=== PATIENT | female | born 1960 | race Caucasian/White ===

== ENCOUNTER → 2019-05-23 | Outpatient (CLI) | payer OTHER ==
[~2019-05-23] MED LIST: 0.9 % SODIUM CHLORIDE 10 ML DISP.SYRIN. ID ONE; GADOTERATE 5 MMOL/10ML VIAL. INT ART ONE; IOHEXOL 300 MG/ML 50 ML VIAL. INT ART ONE; LIDOCAINE 1% Multi-Dose 20 ML VIAL. ID ONE; LISI10TA2 PO
--- NOTE | 2019-05-23 16:29 | KCIC ---
Examination: Right shoulder Arthrogram: Indications: Pain. Procedure: Risks, benefits and complications including bleeding, infection, blood vessel damage or joint infection were discussed with the patient. Questions were answered and consent form signed. The patient was placed supine on the fluoroscopy table with the shoulder slightly externally rotated. Bony landmarks were used to plan for fluoroscopic injection. The patient was carefully prepped and draped in a sterile fashion. Using fluoroscopic guidance, local anesthetic and a 22 gauge needle the joint space was entered. A 13 cc mixture of 5 cc Omni 300, 5 cc lidocaine, 10 cc saline and 0.1 cc of Dotarem .The procedure was well tolerated and the patient was sent to MRI. Fluoroscopic time 40 seconds. Total fluoroscopic images 1. Impression: Status post fluoroscopic guided arthrogram in preparation for MRI with contrast. Electronically signed by: Lawrence Smith MD (05/23/2019 4:26 PM) [id number]
--- NOTE | 2019-05-23 16:31 | KCIC ---
Examination: MRI right shoulder arthrogram HISTORY: History of right shoulder pain COMPARISON: None available TECHNIQUE: Multiplanar, multisequence MR imaging of the right shoulder performed after arthrogram injection. FINDINGS: The long head of the biceps tendon within the bicipital groove. The attachment of the long head the biceps tendon to the superior labral anchor grossly appears intact. The attachment of the subscapularis tendon grossly appears intact. Small 9 mm hypointense signal identified in the distal supraspinatus tendon likely calcific tendinitis. There is extension of contrast into the anterior aspect of the subdeltoid bursa with mild undulation of the anteriormost fibers of the supraspinatus tendon, best visualized on series 6 image #10 The attachment of the infraspinatus tendon, teres minor tendon grossly appears intact. The visualized labrum grossly appears intact The muscle bulk grossly appears unremarkable The acromion is type II. IMPRESSION: 1. Calcific tendinitis supraspinatus tendon. 2. Contrast in the subacromial bursa and irregular tissue at the rotator interval which is concerning for a tear at the far leading edge of the supraspinatus and extending to involve the interval though it is difficult to exclude a split injection to account for the appearance. Electronically signed by: Lawrence Smith MD (05/23/2019 4:28 PM) [id number]
== END | disposition home or self-care (01) ==
LOC: KCIC 12:37
PROVIDERS: ATTEND Orthopaedic Surgery
DX: M75.31 Calcific tendinitis of right shoulder (principal); I10 Essential (primary) hypertension; Z88.0 Allergy status to penicillin
CPT/HCPCS: 73040; 73222; A9575; Q9967

== ENCOUNTER → 2019-07-11 | Outpatient (CLI) | payer BC, OTHER ==
[~2019-07-11] MED LIST changes: -0.9 % SODIUM CHLORIDE 10 ML DISP.SYRIN. ID ONE; -GADOTERATE 5 MMOL/10ML VIAL. INT ART ONE; -IOHEXOL 300 MG/ML 50 ML VIAL. INT ART ONE; -LIDOCAINE 1% Multi-Dose 20 ML VIAL. ID ONE
--- NOTE | 2019-07-11 09:25 | KCIC ---
MRI Cervical Spine Without Contrast History: Cervical radiculopathy, new shooting pain in the right arm, neck pain for one month Technique: Multiplanar, multi sequential noncontrast MR imaging was performed of the cervical spine. Comparison: None Findings: There is some motion. Cervical cord caliber is within normal limits without defined or expansile signal abnormality. Cervical vertebral body stature is maintained. There is very minimal posterior subluxation C4 relative to C5. There is straightening of the cervical spine. There is moderate degenerative disc disease greater posteriorly at C4-C5, also [id number] degenerative disc disease at C5-6 and minimally at C6-7 and C3-C4. There is no significant focal marrow edema. C2-C3: Neural foramina and spinal canal are adequate. C3-C4: There is a posterior right paracentral protrusion/mostly contained extrusion about 3 to 4 mm indenting the ventral thecal sac and partially effacing ventral subarachnoid space with contact of the ventral surface of cord. There is extent very slightly above and below the intervertebral disc space. Central canal is narrowed to about 8 mm. Neural foramina are adequate. C4-C5: There is minimal disc osteophyte complex and bulge. Central canal is borderline about 10 mm. There is bilateral uncovertebral degenerative change. Somewhat poorly characterized due to motion, there is likely at least [id number] narrowing of the right neural foramen and at least mild narrowing on the left. C5-C6: There is minimal disc osteophyte complex slightly indenting the ventral thecal sac, somewhat greater in the far left lateral recess. Central canal is narrowed to about 9 mm also with mild narrowing of the far left lateral recess. There is uncovertebral degenerative change greater on the left. Right neural foramen is adequate, minimal narrowing of the left neural foramen anteriorly. C6-C7: There is minimal bulge. Central canal is adequate about 12 mm. There is facet degenerative change bilaterally. There is minimal narrowing of the left neural foramen, right neural foramen adequate. C7-T1: Spinal canal and the neural foramina are adequate. Impression: 1. There is mild spinal stenosis at C3-4 and to lesser degree at C5-C6 as described. There is very mild posterior subluxation C4 relative to C5. There is moderate degenerative disc disease at C4-5 and to a somewhat lesser degree at C5-6, minimally at C3-4 and C6-7. There is spondylosis greatest at C4-5 and C5-6. There is suspected [id number] neural foramina compromise greater on the right at C4-5 in part from uncovertebral degenerative change. Electronically signed by: Main Watt MD (07/11/2019 9:22 AM) [id number]
== END | disposition home or self-care (01) ==
LOC: KCIC MRI 08:15
PROVIDERS: ATTEND Orthopaedic Surgery
DX: M50.121 Cervical disc disorder at C4-C5 level with radiculopathy (principal); M47.22 Other spondylosis with radiculopathy, cervical region; M48.02 Spinal stenosis, cervical region; M25.78 Osteophyte, vertebrae
CPT/HCPCS: 72141

== ENCOUNTER → 2020-12-17 | Day surgery (SDC) | payer OTHER ==
[~2020-12-17] VITALS: Ht 165.1 cm; Wt 68.0 kg
[~2020-12-17] MED LIST changes: +IV RINGERS,LACTATED 1000ML 1,000 ML IV SCH; +LIDOCAINE 2% PF 5 ML VIAL. ONE; +LISI10TA16 PO; -LISI10TA2 PO; +PREG-9 PO; +PROPOFOL 10 MG/ML (20ML) VIAL. IV ONE; +TRIA1CAP3 PO
[2020-12-17 09:15] VITALS: BP 183/77
[2020-12-17 10:18] VITALS: BP 109/59
== END | disposition home or self-care (01) ==
LOC: SURG 08:08
PROVIDERS: ATTEND Internal Medicine Gastroenterology
DX: Z12.11 Encounter for screening for malignant neoplasm of colon (principal); K64.0 First degree hemorrhoids; K63.89 Other specified diseases of intestine; I10 Essential (primary) hypertension; Z85.828 Personal history of other malignant neoplasm of skin; Z79.899 Other long term (current) drug therapy; Z98.890 Other specified postprocedural states; Z88.0 Allergy status to penicillin
CPT/HCPCS: 45378; J2704